=== PATIENT | male | born 1990 | race African-American/Black ===

== ENCOUNTER 2020-11-10 11:34 | Outpatient (CLI) | payer SELFPAY ==
[2020-11-10 13:03] LABS: Hemoglobin 14.9 g/dL (13.5-17.5); Mean Corpuscular HGB CONC 32.2 g/dL (32.0-36.0); Mean Corpuscular Volume 96.3 fl (81.2-95.1); Mean Platelet Volume 10.3 fl (7.4-10.4); Platelet Count 244 10x3/uL (150-450); RBC Distribution Width 12.9 % (11.5-14.5); Red Blood Cell (RBC) Count 4.81 10x6/uL (4.32-5.72); White Blood Cell (WBC) Count 6.7 10x3/uL (3.5-10.5)
[2020-11-11 17:03] LABS: SARS-CoV-2 PCR by NAA Not Detected (NotDetected)
== END 2020-11-10 11:35 | disposition home or self-care (01) ==
LOC: LABBT 11:34
PROVIDERS: ATTEND Orthopaedic Surgery Hand Surgery
DX: Z01.812 Encounter for preprocedural laboratory examination (principal); S62.616A Displaced fracture of proximal phalanx of right little finger, initial encounter for closed fracture; Z20.822 Contact with and (suspected) exposure to COVID-19
CPT/HCPCS: 85027; U0003; U0005

== ENCOUNTER 2020-11-14 11:54 | Day surgery (SDC) | payer OTHER ==
[2020-11-13 12:24] VITALS: BMI 23.7
[2020-11-14] MEDS ORDERED: Bacitracin Zinc Ointment 30 gm TUBE ONE (12:12)
[2020-11-14] MEDS ORDERED: Bupivacaine PF 0.5% 30 ML VIAL ONE (12:12)
[2020-11-14] MEDS ORDERED: Neomycin-Polymyxin 1 ML AMP ONE (12:12)
[2020-11-14] MEDS ORDERED: Fentanyl 100 MCG/2 ML VIAL ONE (12:47)
[2020-11-14] MEDS ORDERED: Midazolam HCl 2 mg/2 ml Vial ONE (12:47)
[2020-11-14] MEDS ORDERED: PROPOFOL 200 MG/20 ML VIAL ONE (13:06)
[2020-11-14] MEDS ORDERED: ePHEDrine Sulfate 50 MG/10 ML VIAL ONE (13:06)
[2020-11-14] MEDS ORDERED: Ondansetron PF 4 MG/2 ML Vial ONE (13:06)
[2020-11-14] MEDS ORDERED: Lidocaine 1% PF 5 ML VIAL ONE (13:06)
[2020-11-14] MEDS ORDERED: Glycopyrrolate 0.2 MG/ML 5 ML SYRINGE ONE (13:06)
[2020-11-14] MEDS ORDERED: PHENYLEPHRINE-NS 100 MCG/ML 10 ML SYRINGE ONE (13:06)
[2020-11-14] MEDS ORDERED: Meperidine HCl/PF 25 MG/ML VIAL ONE (15:58)
[2020-11-14] MEDS ORDERED: Ketorolac Tromethamine 30 MG/ML VIAL ONE ×2 (16:16)
== END 2020-11-14 17:40 | disposition home or self-care (01) ==
LOC: SDC 11:54
PROVIDERS: ATTEND Orthopaedic Surgery Hand Surgery
PROC: 0RNW0ZZ Release Right Finger Phalangeal Joint, Open Approach (ICD-10-PCS; principal; 2020-11-14)
PROC: 0PST04Z Reposition Right Finger Phalanx with Internal Fixation Device, Open Approach (ICD-10-PCS; principal; 2020-11-14)
DX: S62.626A Displaced fracture of middle phalanx of right little finger, initial encounter for closed fracture (principal); M24.541 Contracture, right hand; X58.XXXA Exposure to other specified factors, initial encounter; Y93.67 Activity, basketball
CPT/HCPCS: 76000; C1713; J0690; J1885; J2175; J2250; J2405; J2704; J3010; S0020